=== PATIENT | male | born 1990 ===

== ENCOUNTER 2021-06-29 17:41 | Emergency (ER) ==
[~2021-06-29] VITALS: Ht 182.9 cm; Wt 94.1 kg
[2021-06-29 17:42] VITALS: BP 116/68
[2021-06-29] MEDS ORDERED: LEXA1TAB2 PO (18:29)
== END 2021-06-29 19:25 | disposition left against medical advice (07) ==
LOC: M ED 17:41
DX: Z53.21 Procedure and treatment not carried out due to patient leaving prior to being seen by health care provider (principal)